=== PATIENT | female | born 1975 | race American Indian/Alaskan Native ===

== ENCOUNTER 2016-10-15 13:28 | Emergency (ER) | payer MEDICAID ==
[2016-10-15] MEDS ORDERED: REGLAN IM ONE (16:30)
[2016-10-15] MEDS ORDERED: BENADRYL IM ONE (16:30)
[2016-10-15] MEDS ORDERED: TORADOL IM ONE (16:30)
--- NOTE | 2016-10-15 18:26 | Cat Scan Report ---
FINAL REPORT PROCEDURE: CT head without contrast. TECHNIQUE: Computerized tomography of the head was performed without contrast material. HISTORY: Headache. COMPARISON: No prior studies are available for comparison. FINDINGS: The ventricles are normal in size. The paez matter and white matter appear normal. There are no mass lesions. There is no intracranial hemorrhage. There are no signs of acute infarction. The calvarium appears intact. The mastoid air cells and paranasal sinuses are clear as far as visualized. IMPRESSION: Normal study.
[2016-10-15 19:22] VITALS: BP 121/59
== END 2016-10-15 19:21 | disposition home or self-care (01) ==
LOC: ED 13:28
DX: I10 Essential (primary) hypertension (principal); H53.143 Visual discomfort, bilateral; G44.89 Other headache syndrome; K21.9 Gastro-esophageal reflux disease without esophagitis; J45.909 Unspecified asthma, uncomplicated; Z90.49 Acquired absence of other specified parts of digestive tract
CPT/HCPCS: 70450; 81025; 96372; 99283; J1200; J1885; J2765

== ENCOUNTER 2016-11-18 10:43 | Outpatient (CLI) | payer MEDICAID ==
--- NOTE | 2016-11-19 16:41 | Ultrasound Report ---
Pelvic ultrasound: Menorrhagia, pelvic pain. Endovaginal and transabdominal imaging demonstrates an anteverted uterus measuring 4.0 x 6.3 x 9.5 cm. The myometrium is homogeneous. The endometrial thickness is 7.7 mm in generally unremarkable. The right ovary is not identified by either approach. The left ovary measures 4 cm in maximum dimension and contains a couple of cysts measuring under 2 cm each. No free fluid noted. Study somewhat compromised by bowel gas. Impressions: Unremarkable uterus and endometrium. Nonvisualized right ovary.
== END 2016-11-18 10:44 | disposition home or self-care (01) ==
LOC: US 10:43
PROVIDERS: ATTEND General Practice
DX: N83.202 Unspecified ovarian cyst, left side (principal); N92.0 Excessive and frequent menstruation with regular cycle; N85.4 Malposition of uterus
CPT/HCPCS: 76830; 76856

== ENCOUNTER 2016-12-22 15:43 | Emergency (ER) | payer MEDICAID ==
[2016-12-22 16:20] VITALS: BP 138/74
== END 2016-12-22 22:53 | disposition left against medical advice (07) ==
LOC: ED 15:43
DX: H57.12 Ocular pain, left eye (principal); H57.8 Other specified disorders of eye and adnexa; Z53.21 Procedure and treatment not carried out due to patient leaving prior to being seen by health care provider

== ENCOUNTER 2017-02-18 14:49 | Emergency (ER) | payer MEDICAID ==
[2017-02-18 15:43] LABS: Basophils % (Auto) 0.6 % (0.0-1.8); Eosinophils % (Auto) 0.2 % (0.0-4.3); Hematocrit 36.1 % (30.3-42.9); Hemoglobin 11.2 gm/dl (10.1-14.3); Mean Corpuscular HGB Conc 31 % (30-34); Mean Corpuscular Volume 74 fl (79-97); Platelet Count 313 K/mm3 (140-440); Red Blood Count 4.91 M/mm3 (3.65-5.03); Red Cell Distribution Width 16.9 % (13.2-15.2); White Blood Count 12.5 K/mm3 (4.5-11.0)
[2017-02-18 15:54] LABS: Anion Gap 20 mmol/L; BUN/Creatinine Ratio 21.66; Blood Urea Nitrogen 13 mg/dL (7-17); Calcium 9.1 mg/dL (8.4-10.2); Carbon Dioxide 22 mmol/L (22-30); Chloride 98.6 mmol/L (98-107); Glucose 165 mg/dL (65-100); Potassium 3.2 mmol/L (3.6-5.0); Sodium 137 mmol/L (137-145)
[2017-02-18 16:28] LABS: Mean Corpuscular Hemoglobin 23 pg (28-32)
[2017-02-19] MEDS ORDERED: CATAPRES PO ONE (02:02)
[2017-02-19] MEDS ORDERED: ANTIVERT PO ONE (02:02)
[2017-02-19] MEDS ORDERED: K-DUR PO ONE (02:08)
[2017-02-19] MEDS ORDERED: ZOFRAN ODT PO PRN (02:08)
--- NOTE | 2017-02-19 02:08 | Emergency Department Report ---
HPI - General Chief Complaint: Dizziness Time Seen by Provider: 02/19/17 01:52 - HPI HPI: Room 23 The patient is a 41-year-old female presenting with a chief complaint of left ear pain and dizziness. The patient states that approximately 14:00 she stuck a sharp end of a comb into her left ear to scratch it. The patient states she believes she went too far and noticed pain and bleeding from the left ear. The patient states she developed dizziness nausea and vomiting. The patient states later this evening at approximately 20:00 she developed a headache. Location: Left ear, head Duration: Since 14:00 Quality: Dizziness, pain Severity: Moderate Modifying factors: [see above] Context: [see above] Mode of transportation: [not driving] ED Past Medical Hx - Past Medical History Hx Hypertension: Yes Hx GERD: Yes (2012) Hx Asthma: Yes - Surgical History Hx Cholecystectomy: Yes (1998) Hx Appendectomy: Yes (1997) Additional Surgical History: gastric sleeve- 04/2013 - Family History Family history: no significant - Social History Smoking Status: Never Smoker Substance Use Type: None (denies illicit drug use), Alcohol (occasional) - Medications Home Medications: Home Medications Medication Instructions Recorded Confirmed Last Taken Type Butalb/Acetamin/Caff 50-325-40 1 tab PO Q6HR PRN #12 tab 10/15/16 Unknown Rx [Fioricet] Lisinopril/Hydrochlorothiazide 1 tab PO QDAY #30 tab 10/15/16 Unknown Rx [Zestoretic 20-25 mg] Ciprofloxacin/Hydrocortisone 3 drop OT BID #1 bottle 02/19/17 Unknown Rx [Ciprofloxacin HC OTIC] HYDROcodone/APAP 5-325 [[place] 1 - 2 each PO Q6HR PRN #10 tablet 02/19/17 Unknown Rx 5/325] Meclizine [Antivert] 25 mg PO TID PRN #20 tablet 02/19/17 Unknown Rx ED Review of Systems ROS: Stated complaint: LEFT EAR PAIN/LIGHTHEADED/DIZZY Other details as noted in HPI Comment: All other systems reviewed and negative Eyes: denies: eye pain, eye discharge, vision change ENT: ear pain, hearing loss Respiratory: denies: cough, shortness of breath, wheezing Cardiovascular: denies: chest pain, palpitations Endocrine: no symptoms reported Gastrointestinal: denies: abdominal pain, nausea, diarrhea Genitourinary: denies: urgency, dysuria, discharge Musculoskeletal: denies: back pain, joint swelling, arthralgia Skin: denies: rash, lesions Neurological: headache, vertigo Psychiatric: denies: anxiety, depression Hematological/Lymphatic: denies: easy bleeding, easy bruising Physical Exam - Physical Exam Vital Signs: Vital Signs 02/18/17 02/19/17 15:05 00:30 Temperature 97.0 F L Pulse Rate 71 63 Respiratory 20 18 Rate Blood Pressure 135/71 Blood Pressure 173/83 [Right] O2 Sat by Pulse 100 100 Oximetry Physical Exam: GENERAL: The patient is well-developed well-nourished female sleeping on stretcher not appearing to be in acute distress. [] HEENT: Normocephalic. Atraumatic. Extraocular motions are intact. Patient has moist mucous membranes. Left anterior reveals dry blood in the external auditory canal. Left TM is partially visualized and appears slightly erythematous but intact. There is no hemotympanum visualized NECK: Supple. CHEST/LUNGS: There is no respiratory distress noted. HEART/CARDIOVASCULAR: Regular. There is no tachycardia. ABDOMEN: There is no abdominal distention. SKIN: There is no rash. There is no edema. There is no diaphoresis. NEURO: The patient is awake, alert, and oriented. The patient is cooperative. The patient has normal speech MUSCULOSKELETAL:There is no evidence of acute injury. ED Course Vital Signs 02/18/17 02/19/17 15:05 00:30 Temperature 97.0 F L Pulse Rate 71 63 Respiratory 20 18 Rate Blood Pressure 135/71 Blood Pressure 173/83 [Right] O2 Sat by Pulse 100 100 Oximetry ED Medical Decision Making - Lab Data Result diagrams: 02/18/17 15:21 02/18/17 15:21 Laboratory Tests 02/18/17 02/18/17 15:21 15:21 WBC 12.5 H RBC 4.91 Hgb 11.2 Hct 36.1 MCV 74 L MCH 23 L MCHC 31 RDW 16.9 H Plt Count 313 Lymph % (Auto) 24.4 Elbert % (Auto) 4.2 Eos % (Auto) 0.2 Baso % (Auto) 0.6 Lymph # 3.1 Elbert # 0.5 Eos # 0.0 Baso # 0.1 Seg Neutrophils % 70.6 H Seg Neutrophils # 8.8 H Sodium 137 Potassium 3.2 L Chloride 98.6 Carbon Dioxide 22 Anion Gap 20 BUN 13 Creatinine 0.6 L Estimated GFR > 60 BUN/Creatinine Ratio 21.66 Glucose 165 H Calcium 9.1 - Radiology Data Radiology results: report reviewed (CT head), image reviewed (CT head) CT head (read by radiologist)-no acute intracranial findings. - Differential Diagnosis otitis externa, labyrinthitis, vertigo, ruptured TM, Critical care attestation.: If time is entered above; I have spent that time in minutes in the direct care of this critically ill patient, excluding procedure time. ED Disposition Clinical Impression: Vertigo, Erythema of tympanic membrane of left ear Disposition: - TO HOME OR SELFCARE Is pt being admited?: No Does the pt Need Aspirin: No Condition: Stable Instructions: Vertigo (ED) Additional Instructions: Return to the emergency department immediately should you develop worsening symptoms, fever, inability to tolerate food or liquid or any other concerns. Prescriptions: Ciprofloxacin/Hydrocortisone [Ciprofloxacin HC OTIC] 3 drop OT BID #1 bottle HYDROcodone/APAP 5-325 [[place] 5/325] 1 - 2 each PO Q6HR PRN #10 tablet PRN Reason: Pain Meclizine [Antivert] 25 mg PO TID PRN #20 tablet PRN Reason: Vertigo Referrals: PRIMARY CARE, [Primary Care Provider] - 3-5 Days RAGHU RIVERA MD [Staff Physician] - [facility] (Dr. Rivera is an ear nose and throat doctor (manager clinical applications). Please follow-up with her for further evaluation) Time of Disposition: 03:24
--- NOTE | 2017-02-19 03:09 | Cat Scan Report ---
FINAL REPORT EXAM: CT HEAD/BRAIN WO CON HISTORY: htn, FLOWERS, dizzy. Sharp object stuck into left ear TECHNIQUE: Noncontrast CT axial images of the brain. PRIORS: 15 October 2016. FINDINGS: No parenchymal mass, mass effect, hemorrhage, midline shift or hydrocephalus. No evidence of acute cortical infarct. No abnormal, extra-axial fluid or air collection. Osseous calvarium grossly intact. IMPRESSION: 1. No acute intracranial findings.
[2017-02-19 04:00] VITALS: BP 158/77
[2017-02-19] MEDS ORDERED: ANTIVERT ONE (05:23)
== END 2017-02-19 04:00 | disposition home or self-care (01) ==
LOC: ED 14:49
DX: H73.892 Other specified disorders of tympanic membrane, left ear (principal); R42 Dizziness and giddiness; I10 Essential (primary) hypertension; K21.9 Gastro-esophageal reflux disease without esophagitis; J45.909 Unspecified asthma, uncomplicated
CPT/HCPCS: 36415; 70450; 80048; 85025

== ENCOUNTER 2019-08-11 07:50 | Emergency (ER) | payer MEDICAID ==
[2019-08-11 08:45] LABS: Basophils % (Auto) 0.6 % (0.0-1.8); Eosinophils # (Auto) 0.1 K/mm3 (0.0-0.4); Eosinophils % (Auto) 1.1 % (0.0-4.3); Hematocrit 31.1 % (30.3-42.9); Hemoglobin 9.7 gm/dl (10.1-14.3); Lymphocytes # (Auto) 1.3 K/mm3 (1.2-5.4); Lymphocytes % (Auto) 19.9 % (13.4-35.0); Mean Corpuscular HGB Conc 31 % (30-34); Monocytes # (Auto) 0.4 K/mm3 (0.0-0.8); Monocytes % (Auto) 6.1 % (0.0-7.3); Platelet Count 291 K/mm3 (140-440); Red Blood Count 4.49 M/mm3 (3.65-5.03); Red Cell Distribution Width 16.5 % (13.2-15.2)
[2019-08-11 08:46] LABS: Mean Corpuscular Volume 69 fl (79-97)
[2019-08-11 09:07] LABS: Alanine Aminotransferase 6 units/L (7-56); Albumin 3.7 g/dL (3.9-5); BUN/Creatinine Ratio 18; Blood Urea Nitrogen 11 mg/dL (7-17); Calcium 9.2 mg/dL (8.4-10.2); Hemolysis Index 31
--- NOTE | 2019-08-11 09:41 | Emergency Department Report ---
ED Abdominal Pain HPI - General Chief Complaint: Abdominal Pain Stated Complaint: ABD PAIN Time Seen by Provider: 08/11/19 09:39 Source: patient Mode of arrival: Ambulatory Limitations: No Limitations - History of Present Illness Initial Comments: Patient here report abdominal pain for 6 months. Worse today. Reports some nausea and denied any vomiting or diarrhea. She says she has surgery to abdomen 3 with gastric sleeve, gallbladder removed and appendix removed. This was in her past surgical history. Denies any fever or chills. Denies any diarrhea or any blood in her stool . Has a urinary burning, frequency or urgency. Denies any shortness of breath or chest pain. Denies any back pain. No pain medication taken. She reports that she is worried because she has had multiple surgery and she wants to make sure that everything is okay. MD Complaint: abdominal pain Onset/Timin -: month(s) Radiation: none Migration to: no migration Severity scale (0 -10): 5 Quality: sharp, dull Consistency: intermittent Improves With: nothing Worsens With: nothing Context: other (unknown) Associated Symptoms: nausea. denies: vomiting, diarrhea, fever, chills, constipation, dysuria, hematemesis, hematochezia, melena, hematuria, anorexia, syncope Treatments Prior to Arrival: other (none) - Related Data LMP Date: 08/10/19 Previous Rx's Medication Instructions Recorded Last Taken Type Butalb/Acetamin/Caff 50-325-40 1 tab PO Q6HR PRN #12 tab 10/15/16 Unknown Rx [Fioricet] Lisinopril/Hydrochlorothiazide 1 tab PO QDAY #30 tab 10/15/16 Unknown Rx [Zestoretic 20-25 mg] Ciprofloxacin/Hydrocortisone 3 drop OT BID #1 bottle 02/19/17 Unknown Rx [Ciprofloxacin HC OTIC] HYDROcodone/APAP 5-325 [[place] 1 - 2 each PO Q6HR PRN #10 tablet 02/19/17 Unknown Rx 5/325] Meclizine [Antivert] 25 mg PO TID PRN #20 tablet 02/19/17 Unknown Rx 21/Iron Fu/Folic Acid 1 each PO DAILY #30 tablet 05/25/18 Unknown Rx [ Complete Caplet] Acetaminophen/Codeine [Tylenol 1 tab PO Q6H PRN #9 tab 08/11/19 Unknown Rx /Codeine # 3 tab] Ondansetron (Nf) [Zofran TAB] 8 mg PO Q8HR PRN #12 tablet 08/11/19 Unknown Rx Allergies Allergy/AdvReac Type Severity Reaction Status Date / Time No Known Allergies Allergy Unverified 05/25/18 09:26 ED Review of Systems ROS: Stated complaint: ABD PAIN Other details as noted in HPI Constitutional: denies: chills, fever ENT: denies: throat pain Respiratory: denies: cough, shortness of breath, wheezing Cardiovascular: denies: chest pain, palpitations, edema, syncope Gastrointestinal: abdominal pain, nausea. denies: vomiting, diarrhea, constipation, hematemesis, melena, hematochezia Genitourinary: denies: dysuria, frequency, hematuria, discharge, abnormal menses, dyspareunia Skin: denies: rash Neurological: denies: headache, abnormal gait ED Past Medical Hx - Past Medical History Previous Medical History?: Yes Hx Hypertension: Yes Hx GERD: Yes (2012) Hx Asthma: Yes - Surgical History Past Surgical History?: Yes Hx Cholecystectomy: Yes (1998) Hx Appendectomy: Yes (1997) Additional Surgical History: gastric sleeve- 04/2013 - Family History Family history: hypertension - Social History Smoking Status: Never Smoker Substance Use Type: None - Medications Home Medications: Home Medications Medication Instructions Recorded Confirmed Last Taken Type Butalb/Acetamin/Caff 50-325-40 1 tab PO Q6HR PRN #12 tab 10/15/16 Unknown Rx [Fioricet] Lisinopril/Hydrochlorothiazide 1 tab PO QDAY #30 tab 10/15/16 Unknown Rx [Zestoretic 20-25 mg] Ciprofloxacin/Hydrocortisone 3 drop OT BID #1 bottle 02/19/17 Unknown Rx [Ciprofloxacin HC OTIC] HYDROcodone/APAP 5-325 [[place] 1 - 2 each PO Q6HR PRN #10 tablet 02/19/17 Unknown Rx 5/325] Meclizine [Antivert] 25 mg PO TID PRN #20 tablet 02/19/17 Unknown Rx 21/Iron Fu/Folic Acid 1 each PO DAILY #30 tablet 05/25/18 Unknown Rx [ Complete Caplet] Acetaminophen/Codeine [Tylenol 1 tab PO Q6H PRN #9 tab 08/11/19 Unknown Rx /Codeine # 3 tab] Ondansetron (Nf) [Zofran TAB] 8 mg PO Q8HR PRN #12 tablet 08/11/19 Unknown Rx ED Physical Exam - General Limitations: No Limitations General appearance: alert, in no apparent distress - Head Head exam: Present: atraumatic, normocephalic - Eye Eye exam: Present: normal appearance, PERRL, EOMI - ENT ENT exam: Present: normal exam, normal orophraynx, mucous membranes moist, normal external ear exam - Neck Neck exam: Present: normal inspection, full ROM. Absent: tenderness, lympha denopathy - Respiratory Respiratory exam: Present: normal lung sounds bilaterally. Absent: respiratory distress - Cardiovascular Cardiovascular Exam: Present: regular rate, normal rhythm, normal heart sounds - GI/Abdominal GI/Abdominal exam: Present: soft, tenderness (mild tenderness to the suprapubic area), normal bowel sounds. Absent: distended, guarding, rebound, rigid, organ omegaly, mass, bruit, pulsatile mass, hernia - Extremities Exam Extremities exam: Present: normal inspection, full ROM, normal capillary refill, other (no clubbing, cyanosis or edema. ). Absent: tenderness, pedal edema, joint swelling, calf tenderness - Back Exam Back exam: Present: normal inspection, full ROM, other (ambulates without any difficulties). Absent: tenderness, CVA tenderness (R), CVA tenderness (L), mus petty spasm, paraspinal tenderness, vertebral tenderness, rash noted - Neurological Exam Neurological exam: Present: alert, oriented X3, normal gait - Psychiatric Psychiatric exam: Present: normal affect, normal mood - Skin Skin exam: Present: warm, dry, intact, normal color. Absent: rash ED Course Vital Signs 08/11/19 08/11/19 07:54 07:59 Temperature 97.8 F Pulse Rate 81 Respiratory 18 Rate Blood Pressure 153/67 O2 Sat by Pulse 100 Oximetry - Reevaluation(s) Reevaluation #1: 08/11/19 12:35 given Toradol 30 mg IV, morphine 2 mg IV and Zofran 8 mg IV. Upon reeval uation, patient's stable no complaints at present. Awaiting CT scan results Reevaluation #2: 08/11/19 13:36 Patient's stable and no pain at present. Abdominal exam remained the same. ED Medical Decision Making - Lab Data Result diagrams: 08/11/19 08:14 08/11/19 08:14 Vital Signs 08/11/19 08/11/19 07:54 07:59 Temperature 97.8 F Pulse Rate 81 Respiratory 18 Rate Blood Pressure 153/67 O2 Sat by Pulse 100 Oximetry Lab Results 08/11/19 08/11/19 08/11/19 Range/Units 08:14 08:14 08:14 WBC 6.7 (4.5-11.0) K/mm3 RBC 4.49 (3.65-5.03) M/mm3 Hgb 9.7 L (10.1-14.3) gm/dl Hct 31.1 (30.3-42.9) % MCV 69 L (79-97) fl MCH 22 L (28-32) pg MCHC 31 (30-34) % RDW 16.5 H (13.2-15.2) % Plt Count 291 (140-440) K/mm3 Lymph % (Auto) 19.9 (13.4-35.0) % Glynn % (Auto) 6.1 (0.0-7.3) % Eos % (Auto) 1.1 (0.0-4.3) % Baso % (Auto) 0.6 (0.0-1.8) % Lymph # 1.3 (1.2-5.4) K/mm3 Glynn # 0.4 (0.0-0.8) K/mm3 Eos # 0.1 (0.0-0.4) K/mm3 Baso # 0.0 (0.0-0.1) K/mm3 Seg Neutrophils % 72.3 H (40.0-70.0) % Seg Neutrophils # 4.8 (1.8-7.7) K/mm3 Sodium 142 (137-145) mmol/L Potassium 4.5 (3.6-5.0) mmol/L Chloride 107.2 H (98-107) mmol/L Carbon Dioxide 19 L (22-30) mmol/L Anion Gap 20 mmol/L BUN 11 (7-17) mg/dL Creatinine 0.6 L (0.7-1.2) mg/dL Estimated GFR > 60 ml/min BUN/Creatinine Ratio 18 % Glucose 98 (65-100) mg/dL Calcium 9.2 (8.4-10.2) mg/dL Total Bilirubin 0.40 (0.1-1.2) mg/dL AST 13 (5-40) units/L ALT 6 L (7-56) units/L Alkaline Phosphatase 87 (35-129) units/L Total Protein 7.4 (6.3-8.2) g/dL Albumin 3.7 L (3.9-5) g/dL Albumin/Globulin Ratio 1.0 % HCG, Qual Negative (Negative) Urine Color (Yellow) Urine Turbidity (Clear) Urine pH (5.0-7.0) Ur Specific [place] (1.003-1.030) Urine Protein (Negative) mg/dL Urine Glucose (UA) (Negative) mg/dL Urine Ketones (Negative) mg/dL Urine Blood (Negative) Urine Nitrite (Negative) Urine Bilirubin (Negative) Urine Urobilinogen (<2.0) mg/dL Ur Leukocyte Esterase (Negative) Urine WBC (Auto) (0.0-6.0) /HPF Urine RBC (Auto) (0.0-6.0) /HPF U Epithel Cells (Auto) (0-13.0) /HPF Urine Mucus /HPF 08/11/19 Range/Units 09:45 WBC (4.5-11.0) K/mm3 RBC (3.65-5.03) M/mm3 Hgb (10.1-14.3) gm/dl Hct (30.3-42.9) % MCV (79-97) fl MCH (28-32) pg MCHC (30-34) % RDW (13.2-15.2) % Plt Count (140-440) K/mm3 Lymph % (Auto) (13.4-35.0) % Glynn % (Auto) (0.0-7.3) % Eos % (Auto) (0.0-4.3) % Baso % (Auto) (0.0-1.8) % Lymph # (1.2-5.4) K/mm3 Glynn # (0.0-0.8) K/mm3 Eos # (0.0-0.4) K/mm3 Baso # (0.0-0.1) K/mm3 Seg Neutrophils % (40.0-70.0) % Seg Neutrophils # (1.8-7.7) K/mm3 Sodium (137-145) mmol/L Potassium (3.6-5.0) mmol/L Chloride (98-107) mmol/L Carbon Dioxide (22-30) mmol/L Anion Gap mmol/L BUN (7-17) mg/dL Creatinine (0.7-1.2) mg/dL Estimated GFR ml/min BUN/Creatinine Ratio % Glucose (65-100) mg/dL Calcium (8.4-10.2) mg/dL Total Bilirubin (0.1-1.2) mg/dL AST (5-40) units/L ALT (7-56) units/L Alkaline Phosphatase (35-129) units/L Total Protein (6.3-8.2) g/dL Albumin (3.9-5) g/dL Albumin/Globulin Ratio % HCG, Qual (Negative) Urine Color Straw (Yellow) Urine Turbidity Clear (Clear) Urine pH 6.0 (5.0-7.0) Ur Specific [place] 1.011 (1.003-1.030) Urine Protein <15 mg/dl (Negative) mg/dL Urine Glucose (UA) Neg (Negative) mg/dL Urine Ketones Neg (Negative) mg/dL Urine Blood Sm (Negative) Urine Nitrite Neg (Negative) Urine Bilirubin Neg (Negative) Urine Urobilinogen < 2.0 (<2.0) mg/dL Ur Leukocyte Esterase Tr (Negative) Urine WBC (Auto) < 1.0 (0.0-6.0) /HPF Urine RBC (Auto) 1.0 (0.0-6.0) /HPF U Epithel Cells (Auto) 5.0 (0-13.0) /HPF Urine Mucus Few /HPF - Radiology Data Radiology results: report reviewed CT of the abdomen and pelvis with IV contrast shows no acute findings. I r eviewed x-ray report but I was unable to populated in this field due to computer malfunction. - Medical Decision Making This is a 44-year-old female here reported that she has been having abdominal pain on and off for the last 6 months worse today. She denies any vomiting or diahrrea but reports nausea on and off. CT scan of the abdomen and pelvis with IV contrast shows patient with umbilical hernia without strangulation or necrosis mentioned. No other CT findings. No protrusion of hernia. I am unable to palpate a hernia. She was given IV morphine and Toradol with Zofran in emergency room and tolerated well and pain is better. I discussed CT scan result with the patient, I also discussed lab work with her and she was understanding. Patient stable in no acute distress. Discharged home in stable condition with prescription for Tylenol 3 and Zofran. - Differential Diagnosis adhesions, colitis, B0, hernia, UTI, , Critical care attestation.: If time is entered above; I have spent that time in minutes in the direct care of this critically ill patient, excluding procedure time. ED Disposition Clinical Impression: Abdominal pain Qualifiers: Abdominal location: unspecified location Qualified Code(s): R10.9 - Unspecified abdominal pain Hernia, umbilical Qualifiers: Obstruction and gangrene presence: without obstruction or gangrene Qualified Code(s): K42.9 - Umbilical hernia without obstruction or gangrene Disposition: TO HOME OR SELFCARE Is pt being admited?: No Does the pt Need Aspirin: No Condition: Stable Instructions: Abdominal Pain (ED), Umbilical Hernia (ED) Additional Instructions: Please follow-up with primary care and surgeon as instructed. Please see discharge instruction paperwork for details Take medication as prescribed and please do not drive or operate heavy machinery while taking Tylenol No. 3 as it causes drowsiness Her symptoms as worsens, return to the emergency room. Referrals: PRIMARY CARE, [Primary Care Provider] - 08/13/19 RIA CUEVA MD [Staff Physician] - 08/13/19 Forms: Work/School Release Form(ED)
[2019-08-11 11:26] LABS: Bilirubin,Urine NEG (Negative); Blood,Urine SM (Negative); Color,Urine Straw (Yellow); Mucus,Urine FEW /HPF; Protein,Urine <15 mg/dL mg/dL (Negative); Urobilinogen,Urine < 2.0 mg/dL (<2.0); WBC,Urine < 1.0 /HPF (0.0-6.0)
[2019-08-11] MEDS ORDERED: ONDANSETRON 4 MG/2 ML INJ IV ONE (12:14)
[2019-08-11] MEDS ORDERED: MORPHINE 4 MG/1 ML INJ IV ONE (12:14)
[2019-08-11] MEDS ORDERED: KETOROLAC 60 MG/2 ML INJ IVP ONE (12:14)
--- NOTE | 2019-08-11 14:12 | Cat Scan Report ---
CT of the abdomen and pelvis with contrast INDICATION: Lower abdominal pain x6 months COMPARISON: None FINDINGS: Lung bases are clear. Gallbladder is been removed. There is slight biliary dilation. The li quan, spleen, pancreas, adrenal glands and kidneys show no significant abnormalities with a 1 cm left renal low density probably a cyst. There may have been gastric sleeve surgery. No fluid or adenopathy in the upper abdomen. CT of the pelvis shows an umbilical hernia containing bowel but no obstruction. Ovarian cysts are see n measuring up to 2 cm. There is only trace pelvic fluid however. No uterine masses are seen. No dive rticulosis or diverticulitis. Appendix is not identified. No pelvic or inguinal adenopathy. No signif icant skeletal lesion. IMPRESSION: No significant abnormality. Automated exposure control was utilized to diminish radiation dose. Signer Name: Chris Díaz MD Signed: 08/11/2019 2:08 PM Workstation Name: [id number]
[2019-08-11 15:29] VITALS: BP 146/71
== END 2019-08-11 15:05 | disposition home or self-care (01) ==
LOC: ED 07:50
DX: K42.9 Umbilical hernia without obstruction or gangrene (principal); I10 Essential (primary) hypertension; K21.9 Gastro-esophageal reflux disease without esophagitis; J45.909 Unspecified asthma, uncomplicated; Z90.49 Acquired absence of other specified parts of digestive tract; Z98.84 Bariatric surgery status; Z79.899 Other long term (current) drug therapy
CPT/HCPCS: 36415; 74177; 80053; 81001; 84703; 85025; 96374; 96375; 99284; J1885; J2270; J2405; Q9967